=== PATIENT | male | born 1990 | race Caucasian/White ===

== ENCOUNTER 2021-09-15 19:13 | Emergency (ER) | payer OTHER ==
[~2021-09-15] VITALS: Ht 185.4 cm; Wt 90.2 kg
[2021-09-15 19:14] VITALS: BP 131/80
[2021-09-15] MEDS ORDERED: IBUPROFEN 800 MG TAB PO ONE (20:00)
[2021-09-15] MEDS ORDERED: CYCL-707 PO (20:11)
[2021-09-15] MEDS ORDERED: IBUP80TA PO (20:11)
== END 2021-09-15 20:18 | disposition home or self-care (01) ==
LOC: M ED 19:13
DX: S13.4XXA Sprain of ligaments of cervical spine, initial encounter (principal); V48.5XXA Car driver injured in noncollision transport accident in traffic accident, initial encounter

== ENCOUNTER → 2023-01-22 | Outpatient (REF) | payer OTHER ==
[~2023-01-22] MED LIST: CYCL-707 PO; IBUP80TA PO
== END ==
LOC: M LABSMT 11:20
PROVIDERS: ATTEND Urology
DX: Z30.2 Encounter for sterilization (principal)

== ENCOUNTER 2023-02-17 11:22 | Emergency (ER) | payer OTHER ==
[~2023-02-17] VITALS: Ht 185.4 cm; Wt 88.4 kg
[2023-02-17 11:23] VITALS: BP 117/72; TEMP 97.4; O2SAT 99
== END 2023-02-17 18:11 | disposition left against medical advice (07) ==
LOC: M ED 15:01
DX: Z53.21 Procedure and treatment not carried out due to patient leaving prior to being seen by health care provider (principal)

== ENCOUNTER → 2023-04-10 | Outpatient (REF) | payer OTHER ==
[2023-04-10 11:46] LABS: SEMEN APPEARANCE OPAQUE (OPAQUE); SEMEN VISCOSITY LIQUID (LIQUID); SEMEN VOLUME 2.2 ml (2.0-5.0); WBC CONCENTRATION <=1 M/ml (<=1 M/ml)
== END ==
LOC: M SMT 11:22
PROVIDERS: ATTEND Urology
DX: Z30.2 Encounter for sterilization (principal)